=== PATIENT | female | born 1935 | race Two or more races ===

== ENCOUNTER 2021-01-03 19:41 | Inpatient (IN) | payer OTHER ==
[~2021-01-03] VITALS: Ht 152.4 cm; Wt 54.9 kg
[2021-01-03] MEDS ORDERED: COZAAR50 MG (19:52)
[2021-01-03] MEDS ORDERED: DEXILANT30 MG (19:52)
[2021-01-03] MEDS ORDERED: NIFEDIPINE20 MG (19:53)
[2021-01-03] MEDS ORDERED: CHILDREN'S ASPI81 MG (19:53)
== END 2021-01-09 13:37 | DRG 481 ==
LOC: ER 19:41 → SURG 01-04 08:28
PROVIDERS: ADMIT Orthopaedic Surgery; ATTEND Orthopaedic Surgery
PROC: 0QS636Z Reposition Right Upper Femur with Intramedullary Internal Fixation Device, Percutaneous Approach (ICD-10-PCS; principal; 2021-01-05 09:00)
PROC: 30233N1 Transfusion of Nonautologous Red Blood Cells into Peripheral Vein, Percutaneous Approach (ICD-10-PCS; 2021-01-08)
DX: S72.141A Displaced intertrochanteric fracture of right femur, initial encounter for closed fracture (principal); D62 Acute posthemorrhagic anemia; W01.0XXA Fall on same level from slipping, tripping and stumbling without subsequent striking against object, initial encounter; I10 Essential (primary) hypertension; Z20.822 Contact with and (suspected) exposure to COVID-19

== ENCOUNTER 2021-03-09 11:41 | Outpatient (CLI) | payer OTHER ==
[~2021-03-09 11:41] MED LIST: CHILDREN'S ASPI81 MG; COZAAR50 MG; DEXILANT30 MG; NIFEDIPINE20 MG
== END 2021-03-09 13:41 | disposition home or self-care (01) ==
LOC: RAD 11:41
PROVIDERS: ATTEND Orthopaedic Surgery
DX: M54.5 Low back pain (principal)